=== PATIENT | female | born 1985 | race American Indian/Alaskan Native ===

== ENCOUNTER 2018-01-03 13:57 | Outpatient (CLI) | payer SELFPAY ==
[2018-01-03] MEDS ORDERED: LACTATED RINGERS 1,000 ML ONE (17:36)
[2018-01-03 18:00] VITALS: BP 104/61
[2018-01-03] MEDS ORDERED: LACTATED RINGERS 500 ML IV ONE (18:00)
[2018-01-03] MEDS ORDERED: LACTATED RINGERS 1,000 ML IV SCH (18:00)
== END 2018-01-03 19:44 | disposition home or self-care (01) ==
LOC: EDSTATUS 16:00 → TRG 16:06
PROVIDERS: ATTEND Obstetrics & Gynecology
DX: O26.893 Other specified pregnancy related conditions, third trimester (principal); M25.562 Pain in left knee; Z3A.28 28 weeks gestation of pregnancy
CPT/HCPCS: 59025; 96360; J7120

== ENCOUNTER 2018-03-22 01:56 | Outpatient (CLI) | payer OTHER ==
[2018-03-22] MEDS ORDERED: BRETHINE SUB-Q ONE (03:16)
[2018-03-22 04:12] LABS: Basophils % (Auto) 0.5 % (0.0-1.8); Eosinophils # (Auto) 0.2 K/mm3 (0.0-0.4); Eosinophils % (Auto) 2.7 % (0.0-4.3); Hematocrit 30.3 % (30.3-42.9); Hemoglobin 9.4 gm/dl (10.1-14.3); Lymphocytes % (Auto) 23.3 % (13.4-35.0); Mean Corpuscular HGB Conc 31 % (30-34); Mean Corpuscular Volume 74 fl (79-97); Monocytes # (Auto) 0.8 K/mm3 (0.0-0.8); Platelet Count 302 K/mm3 (140-440); Red Blood Count 4.11 M/mm3 (3.65-5.03); Red Cell Distribution Width 19.8 % (13.2-15.2)
[2018-03-22] MEDS ORDERED: LACTATED RINGERS 1,000 ML IV ONE (04:15)
[2018-03-22 04:24] LABS: Bilirubin,Urine NEG (Negative); Blood,Urine SM (Negative); Color,Urine Yellow (Yellow); Mucus,Urine FEW /HPF; Protein,Urine <15 mg/dL mg/dL (Negative); Urobilinogen,Urine < 2.0 mg/dL (<2.0)
[2018-03-22 04:34] LABS: Amphetamine Screen,Urine PRESUMPTIVE NEGATIVE; Benzodiazepines Screen,Urine PRESUMPTIVE NEGATIVE; Cannabinoid Screen,Urine PRESUMPTIVE NEGATIVE; Cocaine Screen,Urine PRESUMPTIVE NEGATIVE; Methadone Screen,Urine PRESUMPTIVE NEGATIVE; Opiate Screen,Urine PRESUMPTIVE NEGATIVE
[2018-03-22 04:46] LABS: Mean Corpuscular Hemoglobin 23 pg (28-32)
[2018-03-22 04:48] VITALS: BP 117/66
--- NOTE | 2018-03-22 04:57 | Event Note ---
Date: 03/22/18 32yof speaks is from [place] who speaks Creole and very little Occitan. [facility] #[id number] speed runner on the language line was used to translate the following history and plan of care: She presents c/o back and hip pain and contractions. [facility] she received P[place] in [place] however she did not bring the records with her, states SUJEY 03/26/2018. PMHx negative Pshx C/s d/t failure to dilate 2015 , no EtOH, smoking or illicit drug IRRIGATOR VALVE PIPE: no STD Per RN cervix 0.5cm Will obtain US to confirm SUJEY, EFW, giovana. labs obtained, proceed IVF and tocolysis until confirmation of SUJEY. Questions were encouraged and answered. She voiced understanding and agrees with plan of care.
--- NOTE | 2018-03-22 05:42 | Ultrasound Report ---
FINAL REPORT PROCEDURE: US OB BPP WO NON-STRESS TECHNIQUE: Sonographic evaluation for breathing, movement, tone, and amniotic flui d volume was performed. CPT 41231 HISTORY: well being COMPARISON: No prior studies are available for comparison. FINDINGS: Amniotic fluid volume: Normal-score 2. At least one vertical pocket > 2 cm or more in vertical axi s. breathing: Normal-score 2. movement: Normal-score 2. tone: Normal. Score: 8 of 8. IMPRESSION: Normal biophysical profile.
--- NOTE | 2018-03-22 05:46 | Ultrasound Report ---
FINAL REPORT PROCEDURE: US OB FOLLOW UP TECHNIQUE: Real-time limited sonographic examination was performed for evaluation of estimated weight, amniotic fluid volume for each fetus with image documentation (1 or more fetuses). CPT 35969 HISTORY: No care; EFW; gestational age; RICHARD COMPARISON: No prior studies are available for comparison. FINDINGS: FETUS IUP: Single living intrauterine . Position: Vertex. Placental position: Fundal, without previa . Amniotic fluid volume: 4 quadrant volume 10.8 centimeters Heart rate and rhythm: 132 BPM, Regular . anatomic survey: Not performed. MEASUREMENTS BPD: 9.7 centimeter. HC: 33.9 centimeter. AC: 35.5 centimeter. FL: 7.6 centimeter. Mean Gestational Age (composite criteria): 39 weeks 1 day. Ratio biometry: Normal . Estimated Weight: 3753 grams. Interval growth: Appropriate . Estimated Due Date (earliest scan): 03/28/2018. IMPRESSION: 1. Single living intrauterine gestation at approximately 39 weeks 1 day. 2. EDC by US 03/28/2018. Four quadrant amniotic fluid volume 10.8 centimeters
== END 2018-03-22 07:02 | disposition home or self-care (01) ==
LOC: TRG 01:56
PROVIDERS: ATTEND Obstetrics & Gynecology
DX: O62.8 Other abnormalities of forces of labor (principal); O42.92 Full-term premature rupture of membranes, unspecified as to length of time between rupture and onset of labor; Z3A.40 40 weeks gestation of pregnancy
CPT/HCPCS: 36415; 59025; 76816; 76819; 80307; 81001; 85025; 86706; 86762; 86850; 86900; 86901; 87086; 87806; 96360; 96361; 96372; J3105; J7120

== ENCOUNTER 2018-03-28 22:28 | Outpatient (CLI) | payer SELFPAY ==
[2018-03-29] MEDS ORDERED: LACTATED RINGERS 1,000 ML ONE (00:35)
--- NOTE | 2018-03-29 01:10 | Ultrasound Report ---
FINAL REPORT PROCEDURE: US OB BPP WO NON-STRESS TECHNIQUE: Real-time limited sonographic examination was performed for evaluation of size, pos ition, heartbeat, fluid volume for each fetus with image documentation (1 or more fetuses). CPT 7681 5 HISTORY: pain, COMPARISON: No prior studies are available for comparison. FINDINGS: FETUS IUP: Single living intrauterine . Position: Cephalic. Placental position: Fundal, without previa . Amniotic fluid volume: Normal . Heart rate and rhythm: 143 BPM, Regular . anatomic survey: Not evaluated. MEASUREMENTS BPD: 9.3 centimeters correspond at 37 weeks and 5 days. HC: 33.9 centimeters correspond at 38 weeks and 6 days. AC: 32.6 centimeters corresponding to 36 weeks and 4 days. FL: 7.3 centimeters corresponding to 37 weeks and 4 days. Mean Gestational Age (composite criteria): 37 weeks and 5 days. Ratio biometry: Normal . Estimated Weight: 3142 grams. Interval growth: Appropriate . Estimated Due Date (earliest scan): 04/14/2018. IMPRESSION: 1. Single living intrauterine gestation at approximately 37 weeks and 5 days. 2. EDC by US 04/14/2018. 3. Placenta is fundal. There is no previa or abruption.
[2018-03-29 01:29] LABS: Basophils # (Auto) 0.1 K/mm3 (0.0-0.1); Basophils % (Auto) 0.8 % (0.0-1.8); Eosinophils # (Auto) 0.3 K/mm3 (0.0-0.4); Eosinophils % (Auto) 2.4 % (0.0-4.3); Hematocrit 21.9 % (30.3-42.9); Lymphocytes # (Auto) 2.8 K/mm3 (1.2-5.4); Mean Corpuscular HGB Conc 32 % (30-34); Mean Corpuscular Volume 73 fl (79-97); Monocytes % (Auto) 9.3 % (0.0-7.3); Platelet Count 406 K/mm3 (140-440); Red Blood Count 3.01 M/mm3 (3.65-5.03)
[2018-03-29 01:37] LABS: Red Cell Distribution Width 20.3 % (13.2-15.2)
[2018-03-29 01:46] VITALS: BP 130/94
[2018-03-29 02:22] LABS: Hepatitis C Virus Antibody Non-Reactive (NonReactive)
--- NOTE | 2018-03-30 09:51 | Ultrasound Report ---
FINAL REPORT EXAM: US OB FOLLOW UP HISTORY: pain, TECHNIQUE: Obstetrical ultrasound was performed. PRIORS: None. FINDINGS: position is cephalic. Placental location is fundal. Negative for placenta previa. Negative for placental abruption. Amniotic fluid volume is normal. The amniotic fluid index is 6.3 cm. cardiac activity is identified, measured at 143 beats per minute. Measurements: BPD: 9.3 cm-37 weeks 5 days HC: 33.9 cm-38 weeks 6 days AC: 32.6 cm-36 weeks 4 days FL: 7.3 cm-37 weeks 4 days Average gestational age is 37 weeks 5 days. HC/AC: 1.04 Avg age by US: 37 weeks 5 days. These measurements are smaller than those obtained previously on . Differences may be technical. Technically difficult measurements due to lack of amniotic flu id Survey of anatomy: Not performed. IMPRESSION: There is a single intrauterine . According to prior a 1 mm, gestational age is over 40 weeks with an SUJEY of 03/28/2018. Today's measurements, however, are smaller than previous study with today's measurements corresponding to average gestational age of 37 weeks 5 days and estimated weight of 3142 g. Examination technically limited and difficult due to limited amount of amniotic fluid. Spe cifically RICHARD is 6 cm.
== END 2018-03-29 02:11 | disposition home or self-care (01) ==
LOC: TRG 22:28
PROVIDERS: ATTEND Obstetrics & Gynecology
DX: O47.1 False labor at or after 37 completed weeks of gestation (principal); O62.8 Other abnormalities of forces of labor; Z3A.40 40 weeks gestation of pregnancy
CPT/HCPCS: 36415; 76816; 76819; 85025; 85660; 86592; 86706; 86762; 86803; 86850; 86900; 86901; 87806; J7120; 59025; 96360